=== PATIENT | female | born 1960 | race African-American/Black ===

== ENCOUNTER 2016-05-06 09:45 | Emergency (ER) | payer MEDICAID ==
[~2016-05-06] VITALS: Ht 180.3 cm; Wt 70.8 kg
[~2016-05-06 09:45] MED LIST: ACETAMINOPHEN-1 EAC1 ORAL; ALBUTEROL SULF8.5 GM INH; CIPRO500 MG PO; FLAGYL500 MG ORAL; LEVAQUIN500 MG ORAL; METRONIDAZOLE500 MG ORAL; NORCO 5-325 TA1 EACH PO; NORCO 5/3251 TAB ORAL; NORCO1 EA ORAL; ONDANSETRON ODT4 MG ORAL
[2016-05-06 10:22] VITALS: BP 103/69
[2016-05-06] MEDS ORDERED: PROMETH-CODEIN 65 ML PO (10:36)
[2016-05-06] MEDS ORDERED: CHLORPHENIRAMINE4 MG ORAL (10:36)
[2016-05-06] MEDS ORDERED: LEVAQUIN500 MG ORAL (10:36)
--- NOTE | 2016-05-06 10:40 | Emergency Room Report ---
History of Present Illness General Chief Complaint: Flu Like Symptoms Source: Patient Present Illness HPI The patient presents with 3 weeks of upper respiratory symptoms. She's got a productive cough with green phlegm. She does hear herself wheezing. He said chest pain with her cough. She also has decreased hearing in her right ear with pressure there. She also has a sore throat. She did not take any medication for these. She had a flu shot is the beginning of all these symptoms. She feels that is what made her ill. No NVD, dysuria, joint pain, rashes. She does have a slight headache with the cough. The patient does smoke. 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 Nursing Documentation: PMH: Agreed, PSxH: Agreed Nursing Documentation-PMH Hx Asthma: Yes Review of Systems All Other Systems: negative except mentioned in HPI Physical Exam Vital Signs Date Time Temp Pulse Resp B/P Pulse Ox O2 Delivery O2 Flow Rate FiO2 05/06/16 09:56 98.8 65 18 99/67 99 Room Air Sp02 EP Interpretation: reviewed, normal General Appearance: well appearing, no apparent distress Head: normocephalic, atraumatic Eyes: bilateral eye PERRL, bilateral eye normal inspection ENT: hearing grossly normal, normal voice, pharyngeal erythema, other - R TM with sl fluid Neck: full range of motion, supple Respiratory: lungs clear, normal breath sounds, no respiratory distress, speaking full sentences Cardiovascular #1: regular rate, rhythm Cardiovascular #2: 2+ radial (R) Gastrointestinal: normal inspection, normal bowel sounds Musculoskeletal: digits/nails normal, gait/station normal, normal range of motion, no calf tenderness Neurologic: alert - grossly normal neuro, normal gait Psychiatric: mood/affect normal Skin: no rash Medical Decision Making Diagnostic Impression: Primary Impression: Otitis media Additional Impression: Upper respiratory illness ER Course Patient with several weeks of URI with ear pain. DDx: bronchitis, otitis, viral syndrome. Exam c/w otitis with URI. No evidence of pneumonia. Started with flu shot, so doubt influenza. Patient in NAD and not toxic. Patient stable for outpatient observation and treatment. Last Vital Signs Date Time Temp Pulse Resp B/P Pulse Ox O2 Delivery O2 Flow Rate FiO2 05/06/16 10:43 98.6 72 18 105/70 99 Room Air Status: improved Disposition: HOME, SELF-CARE Condition: Stable Scripts Chlorpheniramine Maleate (CHLORPHENIRAMINE MALEATE) 4 Mg Tablet 4 MG ORAL Q6HR Y for congestion, #16 TAB 0 Refills Prov: Faisal Knight M.D. 05/06/16 Levofloxacin* (LEVAQUIN*) 500 Mg Tablet 500 MG ORAL DAILY, #7 TAB Prov: Faisal Knight M.D. 05/06/16 Promethazine HCl/Codeine (Prometh-Codein 6.25-10 mg/5 ml) 5 Ml Syrup 5 ML PO Q6HR, #60 ML Prov: Faisal Knight M.D. 05/06/16 Departure Forms: Return to Work Return to Work in (Days): 3 Return to Work Date: May 09, 2016 Patient Instructions: Upper Respiratory Infection, Adult, Otitis Media, Adult Additional Instructions: OK to take tylenol. Increase your fluids. SPEAK TO YOUR DOCTOR ABOUT STOPPING SMOKING. Faisal Knight M.D. May 06, 2016 10:40
[2016-05-06 10:43] VITALS: BP 105/70
== END 2016-05-06 10:43 | disposition home or self-care (01) ==
LOC: EMR 10:40
DX: H66.91 Otitis media, unspecified, right ear (principal); J06.9 Acute upper respiratory infection, unspecified; R05 Cough; Z88.6 Allergy status to analgesic agent; Z87.891 Personal history of nicotine dependence; J45.909 Unspecified asthma, uncomplicated
CPT/HCPCS: 99282

== ENCOUNTER 2016-08-03 15:26 | Emergency (ER) | payer MEDICAID ==
[~2016-08-03] VITALS: Ht 154.9 cm; Wt 71.7 kg
[~2016-08-03 15:26] MED LIST changes: +CHLORPHENIRAMINE4 MG ORAL; +PROMETH-CODEIN 65 ML PO
[2016-08-03] MEDS ORDERED: TdaP Vaccine 0.5ml Syr IM ONE (16:00)
[2016-08-03] MEDS ORDERED: Bacitracin Oint UD TOPIC ONE (16:00)
[2016-08-03] MEDS ORDERED: Lidocaine 1% MPF 10mg/ml 5ml INJ ONE (16:00)
[2016-08-03] MEDS ORDERED: traMADol 50mg tab ORAL ONE (16:00)
--- NOTE | 2016-08-03 16:58 | Emergency Room Report ---
History of Present Illness General Chief Complaint: Laceration Source: Patient Present Illness HPI The patient is a 56 yr old female presenting for right foot injury which occurred today and also right hand pain which occurred weeks prior. The patient states that she was walking barefoot today and kicked a metal sprinkler by mistake. Patient noticed pain and bleeding to the right fifth toe. Pain is described as a 10 out of 10 dull ache it is worse with touch and walking. Pain does not radiate. The patient denies prior injury to this area. The patient is unsure of last tetanus shot The patient also is having pain of the right second digit of the hand which occurred for no known reason 2 weeks prior. This pain is described as a 7/10 dull ache it is worse with touch. The patient denies any radiating pain. Patient denies numbness or tingling The patient denies any other symptoms including N, v, F, chills Allergies: Coded Allergies: ASPIRIN (Verified Allergy, Unknown, 12/26/12) IBUPROFEN (Verified Allergy, 12/25/12) Patient History Past Medical History: see triage record Pertinent Family History: none Now: No Reviewed Nursing Documentation: PMH: Agreed, PSxH: Agreed Nursing Documentation-PMH Past Medical History: No History, Except For Hx Asthma: Yes Review of Systems All Other Systems: negative except mentioned in HPI Physical Exam Vital Signs Date Time Temp Pulse Resp B/P Pulse Ox O2 Delivery O2 Flow Rate FiO2 08/03/16 15:44 98.2 75 16 121/78 100 Room Air Sp02 EP Interpretation: reviewed, normal General Appearance: no apparent distress, alert, GCS 15, non-toxic Head: normocephalic, atraumatic Eyes: bilateral eye PERRL, bilateral eye normal inspection ENT: hearing grossly normal, normal pharynx, no angioedema, normal voice Musculoskeletal: gait/station normal, normal range of motion, tender - TTP diffusely over R 2nd digit of hand and at base of the R 5th toe Neurologic: alert, oriented x3, responsive, motor strength/tone normal, sensory intact, speech normal Psychiatric: judgement/insight normal, memory normal, mood/affect normal, no suicidal/homicidal ideation Skin: laceration - 4cm laceration at base of R 5th toe and webspace Lymphatic: no adenopathy Procedures Laceration/Wound Repair Laceration/Wound Repair : Consent: Verbal Wound Location: lower extremity Wound's Depth, Shape: linear Wound Length (cm): 4 Wound Explored: clean Betadine Prep?: Yes Anesthesia: 1% Lidocaine Volume Anesthetic (ccs): 5 Wound Debrided: minimal Wound Repaired With: sutures Suture Size/Type: 4:0, proline Number of Sutures: 5 Layer Closure?: No Number Deep Layer Sutures: 0 Sterile Dressing Applied?: Yes Splint Applied?: No Sling Applied?: No Patient Tolerated: Well Complications: None Medical Decision Making PA Attestation Dr. Freeman is my supervising physician. Patient management was discussed with my supervising physician Diagnostic Impression: Primary Impression: Laceration ER Course The patient is a 56 yr old female presenting for right foot injury which occurred today and also right hand pain Ddx considered include but not limited to fracture, tendon/ligament injury, avulsion, nerve damage, cellulitis PE:vitals WNL. NAD Right hand: No obvious deformity. Full active range of motion. There is tenderness to palpation diffusely over the second digit. Skin is intact. No erythema. Right foot: There is a 4 cm laceration at the base of the fifth digit which extends to the web space. Tender to palpation. No ecchymosis. No edema The wound was irrigated with normal saline and cleaned with betadine. A 27g needle was used to administer 5mL of lidocaine w.o epi for digital block. 5 sutures were placed with 4-0 prolene. The wound was well approximated and the patient tolerated the procedure well. The wound was then cleaned and bacitracin was applied. X-ray of the right hand is unremarkable The patient will continue to keep the wound clean and dry and will followup with PMD. Suture instructions provided. ER precautions are given Other X-Ray Diagnostic Results Other X-Ray Diagnostic Results : X-Ray Ordered: R hand Date: Aug 03, 2016 EP Interpretation: Yes Findings: no fractures, no dislocation, no soft tissue swelling Number of Views: 3 PA Scribe Text I am acting as scribe for my supervising physician. My supervising physician's interpretation of the R hand xrays are there are no fractures, dislocations or soft tissue swelling. Last Vital Signs Date Time Temp Pulse Resp B/P Pulse Ox O2 Delivery O2 Flow Rate FiO2 08/03/16 15:44 98.2 75 16 121/78 100 Room Air Status: improved Disposition: HOME, SELF-CARE Condition: Improved Scripts Tramadol Hcl* (ULTRAM*) 50 Mg Tablet 50 MG ORAL Q8HR Y for For Pain, #10 TAB 0 Refills Prov: KATHERINE MCGILL 08/03/16 Cephalexin* (KEFLEX*) 500 Mg Capsule 500 MG ORAL EVERY 6 HOURS, #28 CAP Prov: KATHERINE MCGILL 08/03/16 KATHERINE MCGILL Aug 03, 2016 16:58
[2016-08-03] MEDS ORDERED: TRAMADOL HCL50 MG ORAL (17:06)
[2016-08-03] MEDS ORDERED: CEPHALEXIN500 MG ORAL (17:06)
[2016-08-03 17:10] VITALS: BP_SYST 115; BP_SYST 121; BP_DIAS 70; BP_DIAS 78
[2016-08-03 17:16] VITALS: BP 115/70
--- NOTE | 2016-08-04 12:20 | Diagnostic Imaging Report ---
Indication: PAIN Technique: 3 views right hand Comparison: none Findings: There is degenerative narrowing of the fourth and fifth distal interphalangeal joint. No acute fractures. No dislocations. Impression: No acute process. Degenerative changes, as described
== END 2016-08-03 17:16 | disposition home or self-care (01) ==
LOC: EMR 17:05
DX: S91.114A Laceration without foreign body of right lesser toe(s) without damage to nail, initial encounter (principal); W22.8XXA Striking against or struck by other objects, initial encounter; Y92.007 Garden or yard of unspecified non-institutional (private) residence as the place of occurrence of the external cause; Y99.8 Other external cause status; M79.644 Pain in right finger(s); J45.909 Unspecified asthma, uncomplicated; Z88.6 Allergy status to analgesic agent
CPT/HCPCS: 12002; 73130; 90471; 90715; 99284; Z7502

== ENCOUNTER 2016-08-14 09:08 | Emergency (ER) | payer MEDICAID ==
[~2016-08-14] VITALS: Ht 157.5 cm; Wt 71.7 kg
[~2016-08-14 09:08] MED LIST changes: +CEPHALEXIN500 MG ORAL; +TRAMADOL HCL50 MG ORAL
[2016-08-14 09:17] VITALS: BP 116/77
[2016-08-14] MEDS ORDERED: Bacitracin Oint 15gm Tube TOPIC ONE (09:40)
--- NOTE | 2016-08-14 09:42 | Emergency Room Report ---
History of Present Illness General Chief Complaint: Wound Recheck/Suture Removal Source: Patient, Medical Record Present Illness HPI Patient was sutured 08/03. No problems with laceration aside from the swelling of the foot. No fevers, redness, increased pain. Wearing ortho boot. Has not been working. 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 Period: Post Now: No : 2 Para: 2 Reviewed Nursing Documentation: PMH: Agreed, PSxH: Agreed Nursing Documentation-PMH Hx Asthma: Yes Review of Systems Constitutional: Reports: see HPI Musculoskeletal: Reports: see HPI Skin: Reports: see HPI Neurological: Denies: numbness Physical Exam Vital Signs Date Time Temp Pulse Resp B/P Pulse Ox O2 Delivery O2 Flow Rate FiO2 08/14/16 09:17 98.4 73 18 116/77 98 Room Air General Appearance: well appearing, no apparent distress Head: normocephalic, atraumatic ENT: hearing grossly normal, normal voice Neck: full range of motion, supple Respiratory: no respiratory distress, speaking full sentences Musculoskeletal: digits/nails normal - swelling lateral little toe/foot, gait/ station normal, normal range of motion, no calf tenderness Neurologic: alert, normal gait, grossly normal Psychiatric: mood/affect normal Skin: no rash, wd healing/no infection noted Medical Decision Making Diagnostic Impression: Primary Impression: Encounter for removal of sutures ER Course Here for suture removal. Wound without infection. Sutures removed. Tolerated well. Patient stable for outpatient observation and treatment. Last Vital Signs Date Time Temp Pulse Resp B/P Pulse Ox O2 Delivery O2 Flow Rate FiO2 08/14/16 09:54 98.4 70 18 116/77 98 Room Air Status: improved Disposition: HOME, SELF-CARE Condition: Improved Scripts Bacitracin (Bacitracin) 28.4 Gm Oint...g. 1 APPLIC TOPIC BID, #10 GM Prov: Faisal Knight M.D. 08/14/16 Faisal Knight M.D. Aug 14, 2016 09:42
[2016-08-14] MEDS ORDERED: BACITRACIN15 GM TOPIC (09:44)
[2016-08-14] MEDS ORDERED: Ipratropium 0.02% Inh Soln 2.5ml UD HHN ONE (09:45)
[2016-08-14] MEDS ORDERED: Bacitracin Oint UD TOPIC ONE ×2 (09:45)
[2016-08-14] MEDS ORDERED: Albuterol ud Inhalation HHN ONE (09:45)
[2016-08-14] MEDS ORDERED: Azithromycin 250mg tab ORAL ONE (09:45)
[2016-08-14 09:53] VITALS: BP 110/76
[2016-08-14 09:54] VITALS: BP 116/77
== END 2016-08-14 09:57 | disposition home or self-care (01) ==
LOC: EMR 09:41
DX: S91.319D Laceration without foreign body, unspecified foot, subsequent encounter (principal); Z88.6 Allergy status to analgesic agent; J45.909 Unspecified asthma, uncomplicated; Z48.02 Encounter for removal of sutures
CPT/HCPCS: 99283

== ENCOUNTER 2017-04-01 16:40 | Emergency (ER) | payer MEDICAID ==
[~2017-04-01] VITALS: Ht 172.7 cm; Wt 86.2 kg
[~2017-04-01 16:40] MED LIST changes: +BACITRACIN15 GM TOPIC
[2017-04-01] MEDS ORDERED: Morphine Sulfate 2mg/ml Inj IVP ONE (17:00)
[2017-04-01] MEDS ORDERED: cefTRIAXone 1 GM in NS 55 ML IV ONE (17:00)
[2017-04-01] MEDS ORDERED: Metoclopramide 10mg/2ml Inj IVP ONE (17:00)
[2017-04-01 17:05] VITALS: BP 134/81
[2017-04-01 17:19] LABS: APPEARANCE,URINE CLEAR; KETONES,URINE NEGATIVE (NEGATIVE); LEUKOCYTE ESTERASE ,URINE 1+ (NEGATIVE); NITRITE,URINE NEGATIVE (NEGATIVE); PH,URINE 8 (4.5-8.0); PROTEIN,URINE 1+ (NEGATIVE); UROBILINOGEN,URINE 1 MG/DL (0.0-1.0)
[2017-04-01 17:26] LABS: BASOPHILS % (AUTO) 0.5 % (0.0-2.0); EOSINOPHILS % (AUTO) 0.1 % (0.0-3.0); LYMPHOCYTES % (AUTO) 14.9 % (20.0-45.0); MEAN CORPUSCULAR HEMOGLOBIN 32.4 PG (27.0-31.0); MEAN CORPUSCULAR HGB CONC 32.9 G/DL (32.0-36.0); MEAN CORPUSCULAR VOLUME 98 FL (80-99); MEAN PLATELET VOLUME 5.3 FL (6.5-10.1); MONOCYTES % (AUTO) 6.4 % (1.0-10.0); NEUTROPHILS % (AUTO) 78.2 % (45.0-75.0); PLATELET COUNT 533 K/UL (150-450); RED BLOOD COUNT 4.85 M/UL (4.20-5.40); RED CELL DISTRIBUTION WIDTH 11.8 % (11.6-14.8); WHITE BLOOD COUNT 16.2 K/UL (4.8-10.8)
[2017-04-01 17:30] LABS: RBC,URINE 0-2 /HPF (0 - 2)
[2017-04-01 17:31] LABS: BACTERIA,URINE FEW /HPF; SQUAMOUS EPITHELIAL CELL,UR FEW /LPF (NONE/OCC)
[2017-04-01 17:58] LABS: ANION GAP 9 mmol/L (5-15); CALCIUM 9.7 MG/DL (8.5-10.1); CARBON DIOXIDE 29 MMOL/L (21-32); CHLORIDE 101 MMOL/L (98-107); CREATININE 0.7 MG/DL (0.55-1.30); GLOMERULAR FILTRATION RATE > 60 mL/min (>60); POTASSIUM 4.4 MMOL/L (3.5-5.1); SODIUM 139 MMOL/L (136-145)
[2017-04-01 18:03] LABS: ALANINE AMINOTRANSFERASE 26 U/L (12-78); ALBUMIN/GLOBULIN RATIO 1.1 (1.0-2.7); ASPARTATE AMINO TRANSFERASE 21 U/L (15-37); LIPASE 94 U/L (73-393)
[2017-04-01 19:05] VITALS: BP 121/75
--- NOTE | 2017-04-01 20:42 | Emergency Room Report ---
History of Present Illness General Chief Complaint: Abdominal Pain Source: EMS Present Illness HPI 56 y/o female c/o abd pain x 3 days. Assoc sxs include n/v/d, generalized abd pain. States that sxs are worse with food and has no relieving factors. States she is not taking medication for her sxs and unable to keep down fluids and food. States that her friend had similar sxs that began at the same time and that her friend had in her car yesterday from this condition. Denies any dysuria, flank pain, vag discharge, back pain, neck pain, photophobia , phonophobia, CP, SOB or headache. Allergies: Coded Allergies: ASPIRIN (Verified Allergy, Unknown, 12/26/12) IBUPROFEN (Verified Allergy, Unknown, 04/01/17) Patient History Past Medical History: see triage record Reviewed Nursing Documentation: PMH: Agreed, PSxH: Agreed Nursing Documentation-PMH Hx Asthma: Yes Review of Systems All Other Systems: negative except mentioned in HPI Physical Exam Vital Signs Date Time Temp Pulse Resp B/P (MAP) Pulse Ox O2 Delivery O2 Flow Rate FiO2 04/01/17 16:36 97.9 82 16 134/81 99 Room Air Sp02 EP Interpretation: reviewed, normal General Appearance: alert, GCS 15, non-toxic, moderate distress, other - in obvious pain Head: normocephalic, atraumatic Eyes: bilateral eye normal inspection, bilateral eye PERRL ENT: hearing grossly normal, normal pharynx, no angioedema, normal voice Respiratory: chest non-tender, lungs clear, normal breath sounds, speaking full sentences Cardiovascular #1: regular rate, rhythm, no edema Gastrointestinal: soft, no hernia, no pulsatile mass, no rebound, abnormal bowel sounds - hyperactive, distended, guarding, tenderness - x 4 Genitourinary: no CVA tenderness Neurologic: alert, oriented x3, responsive, motor strength/tone normal, sensory intact, speech normal Psychiatric: judgement/insight normal, memory normal, mood/affect normal, no suicidal/homicidal ideation Skin: normal color, no rash, warm/dry, well hydrated Medical Decision Making PA Attestation Dr. Villagran is my supervising physician with whom patient management has been discussed with. Diagnostic Impression: Primary Impression: Enteritis Additional Impression: Abdominal pain Qualified Codes: R10.10 - Upper abdominal pain, unspecified ER Course Pt. presents to the ED c/o abdominal pain. Ddx considered but are not limited to viral syndrome, , appendicitis, diverticulitis, constipation, gastroenteritis, abdominal hernia, pancreatitis, cholecystitis, nephrolithiasis, and ovarian torsion. Vital signs: are WNL, pt. is afebrile H&PE are most consistent with enteritis ORDERS / ED INTERVENTIONS: My Orders - JOSÉ MIGUEL SWARTZ Procedure Category Date Status Time Vital Signs CARE 04/01/17 Transmitted 16:49 Iv Access / Saline CARE 04/01/17 Transmitted Lock 16:49 Cbc W/ Differential LAB 04/01/17 Complete 16:49 CMP LAB 04/01/17 Complete 16:49 Lipase LAB 04/01/17 Complete 16:49 Urinalysis Reflex LAB 04/01/17 Complete Microscopy 16:49 Metoclopramide PHA 04/01/17 Complete (Reglan) 17:00 Ceftriaxone (Rocephin) PHA 04/01/17 Complete 17:00 Ns 1000ml (Sodium PHA 04/01/17 Complete Chloride 1000ml Bag) 16:[address] 04/01/17 Taken W/Contrast 16:49 Saline 10ml Flush PHA 04/01/17 In Process (Saline 10ml Flush) 17:00 Morphine Sulfate PHA 04/01/17 Complete (Morphine Sulfate) 17:00 Ceftriaxone (Rocephin) PHA 04/01/17 Complete 17:20 Metronidazole (Flagyl) PHA 04/01/17 Complete 22:30 Morphine Sulfate PHA 04/01/17 Complete (Morphine Sulfate) 22:30 DISCHARGE: At this time pt. is stable for d/c to home. Will provide printed patient care instructions, and any necessary prescriptions. Care plan and follow up instructions have been discussed with the patient prior to discharge. Laboratory Tests Test 04/01/17 17:00 White Blood Count 16.2 K/UL (4.8-10.8) H Red Blood Count 4.85 M/UL (4.20-5.40) Hemoglobin 15.7 G/DL (12.0-16.0) Hematocrit 47.8 % (37.0-47.0) H Mean Corpuscular Volume 98 FL (80-99) Mean Corpuscular Hemoglobin 32.4 PG (27.0-31.0) H Mean Corpuscular Hemoglobin Concent 32.9 G/DL (32.0-36.0) Red Cell Distribution Width 11.8 % (11.6-14.8) Platelet Count 533 K/UL (150-450) H Mean Platelet Volume 5.3 FL (6.5-10.1) L Neutrophils (%) (Auto) 78.2 % (45.0-75.0) H Lymphocytes (%) (Auto) 14.9 % (20.0-45.0) L Monocytes (%) (Auto) 6.4 % (1.0-10.0) Eosinophils (%) (Auto) 0.1 % (0.0-3.0) Basophils (%) (Auto) 0.5 % (0.0-2.0) Urine Color Pale yellow Urine Appearance Clear Urine pH 8 (4.5-8.0) Urine Specific [place] 1.015 (1.005-1.035) Urine Protein 1+ (NEGATIVE) H Urine Glucose (UA) Negative (NEGATIVE) Urine Ketones Negative (NEGATIVE) Urine Occult Blood Negative (NEGATIVE) Urine Nitrite Negative (NEGATIVE) Urine Bilirubin Negative (NEGATIVE) Urine Urobilinogen 1 MG/DL (0.0-1.0) H Urine Leukocyte Esterase 1+ (NEGATIVE) H Urine RBC 0-2 /HPF (0 - 2) Urine WBC 2-4 /HPF (0 - 2) Urine Squamous Epithelial Cells Few /LPF (NONE/OCC) Urine Bacteria Few /HPF (NONE) Sodium Level 139 MMOL/L (136-145) Potassium Level 4.4 MMOL/L (3.5-5.1) Chloride Level 101 MMOL/L (98-107) Carbon Dioxide Level 29 MMOL/L (21-32) Anion Gap 9 mmol/L (5-15) Blood Urea Nitrogen 13 mg/dL (7-18) Creatinine 0.7 MG/DL (0.55-1.30) Estimate Glomerular Filtration Rate > 60 mL/min (>60) Glucose Level 95 MG/DL (74-106) Calcium Level 9.7 MG/DL (8.5-10.1) Total Bilirubin 0.6 MG/DL (0.2-1.0) Aspartate Amino Transferase (AST) 21 U/L (15-37) Alanine Aminotransferase (ALT) 26 U/L (12-78) Alkaline Phosphatase 108 U/L (46-116) Total Protein 9.0 G/DL (6.4-8.2) H Albumin 4.8 G/DL (3.4-5.0) Globulin 4.2 g/dL Albumin/Globulin Ratio 1.1 (1.0-2.7) Lipase 94 U/L (73-393) CT/MRI/US Diagnostic Results CT/MRI/US Diagnostic Results : Imaging Test Ordered: CT Abd Pelvis w/ Contrast Impression Compared to 11/22/15 CT, no significant interval change. Medial segment left hepatic lobe cyst is stable, with 2 peripherally located hyperenhancing lesions in the right lobe which were better seen previously, probably due to phase of scanning and/or contrast bolus. Likewise stable kidneys including right and smaller left probable cyst. Gallbladder, pancreas, adrenals and spleen are likewise stable. Again there are few slightly prominent left-sided jejunal loops, without evidence of intestinal obstruction, perhaps transient or on the basis of a mild ileus or enteritis. Contrast is seen reaching the splenic flexure level. There are again scattered colonic diverticula throughout, without diverticulitis. The appendix is normal. Previous hysterectomy. No pelvic or adnexal mass. No free air, localizing inflammatory changes or abscess has developed. Last Vital Signs Date Time Temp Pulse Resp B/P (MAP) Pulse Ox O2 Delivery O2 Flow Rate FiO2 04/01/17 17:05 97.9 16 134/81 99 Room Air 04/01/17 16:36 82 Status: unchanged Reevaluation Impression Patient still with abdominal pain and states she feels unchanged since given IV fluids, morphine, Reglan, and abx. Patient states she'd like to be admitted. Disposition: [facility]FER [facility] Admit Decision Time: 20:54 Condition: Stable Signed Out To: JOSÉ MIGUEL Kang Apr 01, 2017 20:42
[2017-04-01 21:05] VITALS: BP 118/66
[2017-04-01] MEDS ORDERED: Morphine Sulfate 4mg/ml Inj IVP ONE (22:30)
[2017-04-01] MEDS ORDERED: metroNIDAZOLE 500mg tab ORAL ONE (22:30)
[2017-04-01 23:05] VITALS: BP 117/68
[2017-04-01 23:45] VITALS: BP 117/68
--- NOTE | 2017-04-02 09:32 | Diagnostic Imaging Report ---
Clinical Indication: Abdominal pain Technique: Patient given oral contrast. IV administration nonionic contrast. Venous phase spiral acquisition obtained through the abdomen and pelvis. Multiplanar reconstructions were generated. Total dose length product 736 mGycm. CTDIvol(s) 14 mGy. Dose reduction achieved using automated exposure control Comparison: 11/22/2015 Findings: There is colonic diverticulosis again demonstrated. No evidence of diverticulitis. The rectum is mildly distended with stool. The appendix is normal. Ingested contrast does traverse the entirety of the small bowel and much of the colon. There are a few prominent gas-filled loops in the left upper quadrant. No small bowel distention or small bowel wall thickening. No free or loculated intraperitoneal air or fluid is evident. Distal esophagus, stomach, duodenum are unremarkable. Again demonstrated is a 10 mm cyst within segment 4A of the liver. The previously demonstrated enhancing hyperattenuating lesions seen in segment 7 and 8 on the prior exam are again demonstrated although are less conspicuous, more isoattenuating on the current study. These are also evident on a 2013 exam. The gallbladder is distended but otherwise unremarkable. The bile ducts are unremarkable. The pancreas, spleen, adrenals are unremarkable. 15 mm cyst in the interpolar region of the right kidney is again demonstrated. Subcentimeter low-attenuation lesion in the upper pole of the left kidney is again demonstrated. No retroperitoneal or mesenteric mass or adenopathy. There is a large right iliac chain node again demonstrated. This measures 2.5 cm in diameter, appears unchanged from both previous exams. The uterus is surgically absent Included lung bases demonstrate dependent atelectatic changes. The bones are unremarkable. Impression: No acute abnormality demonstrated Prominent left upper quadrant small bowel loops, may represent areas of focal ileus or, more likely, transient. Hyperattenuating lesions within the liver, previously reported, consistent with hemangiomas Large right iliac chain node, unchanged since 2013 and presumed benign Diverticulosis. No evidence of diverticulitis. Right upper pole renal cyst. Subcentimeter low-attenuation lesion in the upper pole left kidney, presumably a benign simple cyst, also previously demonstrated and unchanged Incidental findings as noted, including evidence of prior hysterectomy, hepatic cyst, dependent basilar pulmonary atelectasis This agrees with the preliminary interpretation provided overnight by [email or web address] tel[facility] service. The CT scanner at [facility] is accredited by the [employer] and the scans are performed using protocols designed to limit radiation exposure to as low as reasonably achievable to attain images of sufficient resolution adequate for diagnostic evaluation.
== END 2017-04-01 23:45 | disposition short-term general hospital (02) ==
LOC: EDBD 16:40 → EMR 21:40
DX: K52.9 Noninfective gastroenteritis and colitis, unspecified (principal); J45.909 Unspecified asthma, uncomplicated
CPT/HCPCS: 36415; 74177; 80053; 81003; 83690; 85025; 96361; 96365; 96375; 96376; 99285; J0696; J2270; J2765; Q9967

== ENCOUNTER 2018-10-22 21:07 | Emergency (ER) | payer MEDICAID ==
[~2018-10-22] VITALS: Ht 180.3 cm; Wt 74.4 kg
[2018-10-22 21:26] VITALS: BP 121/80
--- NOTE | 2018-10-22 21:29 | NUR ---
ED Nurse Note: Patient walked in to ER c/o lower abdominal pain /, N/V/D. Per patient she has this problem over 2 weeks but today her pain becom unbearable. AAO x4, VSS at this time, skin is dry, intact, warm to touch.
[2018-10-22] MEDS ORDERED: Morphine Sulfate 4mg/ml Inj (IV USE ONLY) IVP ONE (21:30)
[2018-10-22] MEDS ORDERED: Isovue-300 100ml vial INJ PRN (21:30)
[2018-10-22 21:40] LABS: APPEARANCE,URINE CLEAR; BILIRUBIN, URINE NEGATIVE (NEGATIVE); COLOR,URINE PALE YELLOW; GLUCOSE, URINE (UA) NEGATIVE (NEGATIVE); KETONES,URINE 1+ (NEGATIVE); LEUKOCYTE ESTERASE ,URINE 2+ (NEGATIVE); NITRITE,URINE NEGATIVE (NEGATIVE); PH,URINE 5 (4.5-8.0); PROTEIN,URINE NEGATIVE (NEGATIVE); UROBILINOGEN,URINE 1 MG/DL (0.0-1.0)
--- NOTE | 2018-10-22 22:10 | Emergency Room Report ---
History of Present Illness General Chief Complaint: Abdominal Pain Source: Patient, Medical Record Present Illness HPI Patient presents with complaints of left lower abdominal pain ongoing for the past 3 weeks patient reports off-and-on pain however over the past 7 days the pain has been more consistent Complains of vomiting and diarrhea denies any chest pain or shortness of breath denies any fevers at this time however had some subjective low-grade fever before patient reports she had similar Episode previously when she was seen here and transferred to another hospital denies any rash denies any blood in the stool Allergies: Coded Allergies: ASPIRIN (Verified Allergy, Unknown, 12/26/12) IBUPROFEN (Verified Allergy, Unknown, 04/01/17) Patient History Past Medical History: see triage record Pertinent Family History: none Now: No : 5 Para: 2 Reviewed Nursing Documentation: PMH: Agreed; PSxH: Agreed Nursing Documentation-PMH Past Medical History: No History, Except For Hx Asthma: Yes Review of Systems All Other Systems: negative except mentioned in HPI Physical Exam Vital Signs Date Time Temp Pulse Resp B/P (MAP) Pulse Ox O2 Delivery O2 Flow Rate FiO2 10/22/18 21:11 97.7 81 18 121/80 (94) 100 Room Air Sp02 EP Interpretation: reviewed, normal General Appearance: well appearing, no apparent distress Head: normocephalic, atraumatic Eyes: bilateral eye PERRL, bilateral eye EOMI ENT: hearing grossly normal, normal pharynx, TMs + canals normal, uvula midline Neck: full range of motion, supple, no meningismus, no bony tend Respiratory: lungs clear, normal breath sounds, no rhonchi, no respiratory distress, no retraction, no accessory muscle use Cardiovascular #1: normal peripheral pulses, regular rate, rhythm, no edema, no gallop, no JVD, no murmur Gastrointestinal: normal bowel sounds, soft, no mass, no organomegaly, non- distended, no guarding, no hernia, no pulsatile mass, no rebound, other - Some tenderness left lower abdomen Genitourinary: no CVA tenderness Musculoskeletal: normal inspection Neurologic: oriented x3, responsive, order entry clerk III-XII nml as tested, motor strength/ tone normal, sensory intact Psychiatric: mood/affect normal Skin: normal color, no rash, warm/dry, palpation normal Lymphatic: normal inspection, no adenopathy Medical Decision Making Diagnostic Impression: Primary Impression: Abdominal pain Additional Impression: UTI (urinary tract infection) ER Course With the history exam and presentation, multiple differentials considered, including but not limited to appendicitis, gastritis, cholecystitis, diverticulitis Patient's white blood cell count is mildly elevated CT imaging otherwise benign patient's abdominal exam remains soft and appropriate as well patient provided with antibiotics for UTI here And placed on oral medication for home Labs Test 10/22/18 21:17 10/22/18 21:55 Urine Color Pale yellow Urine Appearance Clear Urine pH 5 (4.5-8.0) Urine Specific [place] 1.025 (1.005-1.035) Urine Protein Negative (NEGATIVE) Urine Glucose (UA) Negative (NEGATIVE) Urine Ketones 1+ (NEGATIVE) Urine Blood 1+ (NEGATIVE) Urine Nitrite Negative (NEGATIVE) Urine Bilirubin Negative (NEGATIVE) Urine Urobilinogen 1 MG/DL (0.0-1.0) Urine Leukocyte Esterase 2+ (NEGATIVE) Urine RBC 0-2 /HPF (0 - 2) Urine WBC 0-2 /HPF (0 - 2) Urine Squamous Epithelial Cells Few /LPF (NONE/OCC) Urine Bacteria Few /HPF (NONE) White Blood Count 13.8 K/UL (4.8-10.8) Red Blood Count 4.44 M/UL (4.20-5.40) Hemoglobin 14.1 G/DL (12.0-16.0) Hematocrit 40.3 % (37.0-47.0) Mean Corpuscular Volume 91 FL (80-99) Mean Corpuscular Hemoglobin 31.9 PG (27.0-31.0) Mean Corpuscular Hemoglobin Concent 35.0 G/DL (32.0-36.0) Red Cell Distribution Width 11.7 % (11.6-14.8) Platelet Count 427 K/UL (150-450) Mean Platelet Volume 4.8 FL (6.5-10.1) Neutrophils (%) (Auto) 54.4 % (45.0-75.0) Lymphocytes (%) (Auto) 38.1 % (20.0-45.0) Monocytes (%) (Auto) 6.2 % (1.0-10.0) Eosinophils (%) (Auto) 0.5 % (0.0-3.0) Basophils (%) (Auto) 0.8 % (0.0-2.0) Sodium Level 141 MMOL/L (136-145) Potassium Level 3.5 MMOL/L (3.5-5.1) Chloride Level 104 MMOL/L (98-107) Carbon Dioxide Level 27 MMOL/L (21-32) Anion Gap 10 mmol/L (5-15) Blood Urea Nitrogen 23 mg/dL (7-18) Creatinine 1.0 MG/DL (0.55-1.30) Estimat Glomerular Filtration Rate > 60 mL/min (>60) Glucose Level 118 MG/DL (74-106) Calcium Level 9.6 MG/DL (8.5-10.1) Total Bilirubin 0.2 MG/DL (0.2-1.0) Aspartate Amino Transf (AST/SGOT) 11 U/L (15-37) Alanine Aminotransferase (ALT/SGPT) 31 U/L (12-78) Alkaline Phosphatase 108 U/L (46-116) Total Protein 7.5 G/DL (6.4-8.2) Albumin 4.3 G/DL (3.4-5.0) Globulin 3.2 g/dL Albumin/Globulin Ratio 1.3 (1.0-2.7) Lipase 225 U/L (73-393) CT/MRI/US Diagnostic Results CT/MRI/US Diagnostic Results : Impression CT abdomen pelvis IMPRESSION: 1. No acute abdominal or pelvic pathology. 2. Diverticulosis of the colon. No evidence of diverticulitis. Last Vital Signs Date Time Temp Pulse Resp B/P (MAP) Pulse Ox O2 Delivery O2 Flow Rate FiO2 10/22/18 21:26 81 18 Room Air 10/22/18 21:26 97.7 121/80 100 Status: improved Disposition: HOME, SELF-CARE Condition: Improved Scripts Tramadol Hcl* (ULTRAM*) 50 Mg Tablet 50 MG ORAL Q12HR PRN for For Pain, #12 TAB 0 Refills Prov: Maggi Shrestha DO 10/23/18 Cephalexin* (KEFLEX*) 500 Mg Capsule 500 MG ORAL EVERY 6 HOURS for 5 Days, CAP Prov: Maggi Shrestha DO 10/23/18 Referrals: [facility],REFERRING (PCP) Additional Instructions: Patient is provided with the discharge instructions notified to follow up with primary doctor in the next 2-3 days otherwise return to the er with any worsening symptoms. Please note that this report is being documented using DRAGON technology. This can lead to erroneous entry secondary to incorrect interpretation by the dictating instrument. Maggi Shrestha DO Oct 22, 2018 22:10
[2018-10-22 22:14] LABS: BASOPHILS % (AUTO) 0.8 % (0.0-2.0); EOSINOPHILS % (AUTO) 0.5 % (0.0-3.0); HEMATOCRIT 40.3 % (37.0-47.0); HEMOGLOBIN 14.1 G/DL (12.0-16.0); LYMPHOCYTES % (AUTO) 38.1 % (20.0-45.0); MEAN CORPUSCULAR VOLUME 91 FL (80-99); MONOCYTES % (AUTO) 6.2 % (1.0-10.0); NEUTROPHILS % (AUTO) 54.4 % (45.0-75.0); PLATELET COUNT 427 K/UL (150-450); RED BLOOD COUNT 4.44 M/UL (4.20-5.40); RED CELL DISTRIBUTION WIDTH 11.7 % (11.6-14.8); WHITE BLOOD COUNT 13.8 K/UL (4.8-10.8)
[2018-10-22 22:16] LABS: ANION GAP 10 mmol/L (5-15); BLOOD UREA NITROGEN 23 mg/dL (7-18); CALCIUM 9.6 MG/DL (8.5-10.1); CARBON DIOXIDE 27 MMOL/L (21-32); CHLORIDE 104 MMOL/L (98-107); POTASSIUM 3.5 MMOL/L (3.5-5.1); SODIUM 141 MMOL/L (136-145)
[2018-10-22 22:20] LABS: ALANINE AMINOTRANSFERASE 31 U/L (12-78); ALBUMIN 4.3 G/DL (3.4-5.0); ALBUMIN/GLOBULIN RATIO 1.3 (1.0-2.7); ALKALINE PHOSPHATASE 108 U/L (46-116); ASPARTATE AMINO TRANSFERASE 11 U/L (15-37); BILIRUBIN,TOTAL 0.2 MG/DL (0.2-1.0)
--- NOTE | 2018-10-22 23:17 | Diagnostic Imaging Report ---
EXAM: CT Abdomen and Pelvis With Intravenous Contrast CLINICAL HISTORY: PAIN TECHNIQUE: Axial computed tomography images of the abdomen and pelvis with intravenous contrast. CTDI is 14 mGy and DLP is 742 mGy-cm. One or more of the following dose reduction techniques were used: automated exposure control, adjustment of the mA and/or kV according to patient size, use of iterative reconstruction technique. COMPARISON: CT abdomen and pelvis dated 04/01/17. FINDINGS: Lung bases: Unremarkable. No mass. No consolidation. ABDOMEN: Liver: Hepatic cysts are stable. There are 2 focal blushes of enhancement in the periphery of the liver unchanged from the prior study and therefore benign. Gallbladder and bile ducts: Unremarkable. No calcified stones. No ductal dilation. Pancreas: Unremarkable. No mass. No ductal dilation. Spleen: Unremarkable. No splenomegaly. Adrenals: Unremarkable. No mass. Kidneys and ureters: 1.2 cm right renal cyst. There is a tiny focus of decreased attenuation in the left kidney too small to characterize by CT criteria. No hydronephrosis. Stomach and bowel: There is diverticulosis of the colon. No acute diverticulitis. There are a few fluid-filled loops of nondilated small bowel. PELVIS: Appendix: No findings to suggest acute appendicitis. Bladder: Unremarkable. No mass. Reproductive: The uterus is not visualized. ABDOMEN and PELVIS: Intraperitoneal space: Unremarkable. No free air. No significant fluid collection. Bones/joints: Degenerative changes in the spine. No acute fracture. No dislocation. Soft tissues: Unremarkable. Vasculature: Atherosclerosis of the abdominal aorta and bilateral iliac arteries. No abdominal aortic aneurysm. Lymph nodes: Unremarkable. No enlarged lymph nodes. IMPRESSION: 1. No acute abdominal or pelvic pathology. 2. Diverticulosis of the colon. No evidence of diverticulitis.
[2018-10-22 23:31] VITALS: BP 125/75
[2018-10-22] MEDS ORDERED: cefTRIAXone 1 GM in NS 55 ML IVPB ONE (23:45)
[2018-10-23] MEDS ORDERED: TRAMADOL HCL50 MG ORAL (00:30)
[2018-10-23] MEDS ORDERED: CEPHALEXIN500 MG ORAL (00:30)
[2018-10-23 00:55] VITALS: BP 125/75
--- NOTE | 2018-10-23 00:55 | NUR ---
ER DISCHARGE NOTE: Patient is cleared to be discharged per ERMD, pt is aox4, on room air, with stable vital signs. pt was given dc and prescription instructions, pt was able to verbalize understanding, pt id band and iv site removed without complications. pt is able to ambulate with steady gait. pt took all belongings.
== END 2018-10-23 00:55 | disposition home or self-care (01) ==
LOC: EMR 21:26
DX: N39.0 Urinary tract infection, site not specified (principal); R10.32 Left lower quadrant pain; J45.909 Unspecified asthma, uncomplicated; Z88.6 Allergy status to analgesic agent
CPT/HCPCS: 36415; 74177; 80053; 81003; 83690; 85025; 96365; 96375; 99284; J0696; J2270; J2405; J7040; Q9967

== ENCOUNTER 2019-01-28 18:53 | Emergency (ER) | payer MEDICAID ==
[~2019-01-28] VITALS: Ht 162.6 cm; Wt 72.6 kg
--- NOTE | 2019-01-28 19:03 | NUR ---
ED Nurse Note: pt brought in by SOPHY from home c/c nosebleed since 12 pm with headache on the frontal area, pt reports she was concerned because similar symptoms happend with her sister and was diagnosed with aneurysm. pt denies any vision changes, tinninitus, but reports she had nausea earlier but no vomiting. medical hx asthma. pt AA&ox4, gcs=15, skin warm and dry, resp even and unlabored on RA, -n/v/d, ambulates w/ steady gait, no bleeding noted at this time, airway intact, will cont monitor.
--- NOTE | 2019-01-28 19:05 | NUR ---
HAND OFF : report given to NANCY Deleon and endorsed care.
[2019-01-28 19:06] VITALS: BP 123/63
--- NOTE | 2019-01-28 19:10 | NUR ---
ED Nurse Note: Got report from NANCY Robison. Patient is resting, VSS at this time, no active nose bleed noticed.
[2019-01-28] MEDS ORDERED: Oxymetazoline 0.05% Na Spray 30ml NASAL ONE ×2 (19:15→19:16)
[2019-01-28] MEDS ORDERED: Silver Nitrate Stick TOPIC ONE ×2 (19:15→19:16)
--- NOTE | 2019-01-28 19:30 | Emergency Room Report ---
History of Present Illness General Chief Complaint: Nosebleed Source: Patient, EMS Present Illness HPI Patient is a 58-year-old female presents after increased epistaxis. Patient had onset of symptoms approximately noon today. She reports having intermittent bleeding from the right nare primarily. She reports having some headache. She had a prior history of epistaxis many years ago. She reports having a moderate headache. She states been present for several months. She denies prior CT imaging. She reports having some prior history of diverticulitis. She denies taking any anticoagulation. She does not have any prior history of hypertension. No recent trauma. Allergies: Coded Allergies: ASPIRIN (Verified Allergy, Unknown, 12/26/12) IBUPROFEN (Verified Allergy, Unknown, 04/01/17) Patient History Past Medical History: see triage record Reviewed Nursing Documentation: PMH: Agreed; PSxH: Agreed Nursing Documentation-PMH Hx Asthma: Yes Review of Systems All Other Systems: negative except mentioned in HPI Physical Exam Vital Signs Date Time Temp Pulse Resp B/P (MAP) Pulse Ox O2 Delivery O2 Flow Rate FiO2 01/28/19 18:53 97.2 72 18 110/75 (87) 98 Room Air Sp02 EP Interpretation: reviewed, normal General Appearance: normal inspection, well appearing, no apparent distress, alert, GCS 15 Head: atraumatic ENT: normal ENT inspection, hearing grossly normal, normal voice, other - slight bleeding from right nare vessel Neck: normal inspection, full range of motion, supple, no bony tend Respiratory: normal inspection, lungs clear, normal breath sounds, no respiratory distress, no retraction, no wheezing Cardiovascular #1: regular rate, rhythm, no edema Gastrointestinal: normal inspection, normal bowel sounds, non tender, soft, no guarding, no hernia Genitourinary: no CVA tenderness Musculoskeletal: normal inspection, back normal, normal range of motion Neurologic: normal inspection, alert, responsive, speech normal Psychiatric: normal inspection, judgement/insight normal, mood/affect normal Medical Decision Making Diagnostic Impression: Primary Impression: Epistaxis ER Course Patient present for nosebleed. Differential diagnosis include was not limited to anterior epistaxis, posterior epistaxis, coagulopathy among others. Patient was noted to have a benign exam without active bleeding. Bleeding vessel was cauterized with silver nitrate after afrin. Patient had no recurrence of bleeding. CT head was ordered due to headache and was read as normal by radiology . Patient appear stable for discharge. She was advised return precautions. Last Vital Signs Date Time Temp Pulse Resp B/P (MAP) Pulse Ox O2 Delivery O2 Flow Rate FiO2 01/28/19 19:06 97.2 76 18 123/63 98 Room Air Status: improved Disposition: HOME, SELF-CARE Condition: Stable Mono Freeman MD Jan 28, 2019 19:30
[2019-01-28 21:05] VITALS: BP 123/63
--- NOTE | 2019-01-28 21:05 | NUR ---
ED Nurse Note: Pt cleared by health care Provider for discharge. DC instructions/prescription was given and explained to pt and verbalized understanding of teachings. All medical deviecs such as ID band removed. Pt is AAO x4, ambulatory and left with all personal belongings.
--- NOTE | 2019-01-28 21:07 | Diagnostic Imaging Report ---
EXAM: CT Head Without Intravenous Contrast CLINICAL HISTORY: PAIN TECHNIQUE: Axial computed tomography images of the head brain without intravenous contrast. CTDI is 72 mGy and DLP is 1734 mGy-cm. One or more of the following dose reduction techniques were used: automated exposure control, adjustment of the mA and or kV according to patient size, use of iterative reconstruction technique. COMPARISON: No relevant prior studies available. FINDINGS: Brain: Unremarkable. No hemorrhage. No edema. Ventricles: Unremarkable. Bones joints: Unremarkable. No acute fracture. Soft tissues: Unremarkable. Sinuses: Unremarkable as visualized. Mastoid air cells: Unremarkable as visualized. IMPRESSION: No acute intracranial abnormality.
== END 2019-01-28 21:05 | disposition home or self-care (01) ==
LOC: EDBD 18:53 → EMR 20:28
DX: R04.0 Epistaxis (principal); J45.909 Unspecified asthma, uncomplicated; Z88.6 Allergy status to analgesic agent; Z88.8 Allergy status to other drugs, medicaments and biological substances
CPT/HCPCS: 70450; Z7502; 99284